=== PATIENT | female | born 1995 | race Caucasian/White ===

== ENCOUNTER 2018-08-08 13:28 | Emergency (ER) | payer OTHER ==
[2018-08-08 13:33] VITALS: BP 95/68; PULSE 78; TEMP 98.4; BMI 19.6
--- NOTE | 2018-08-08 14:44 | PDOC ---
History of Present Illness - General Chief Complaint: Injury Stated Complaint: LEFT FOOT/5TH TOE INJURY Time Seen by Provider: 08/08/18 14:09 History Source: Patient Exam Limitations: No Limitations - History of Present Illness Initial Comments: 08/08/18 14:42 23y F no pmhx presents with complaint of L 5th toe pain after dropping a block of wood on it pt notse mild pain ther, deneis any numbness/tingling;weankess. Musculskelatal - +5th toe pain no reported back pain, joint swelling skin - no reported bruising, erythema, rash neurological: no reported headache, numbness, focal weakness, tingling, ataxia, hematologic: no reported easy bruising, easy bleeding EXTREMITIES: mild ttp to 5th distal/proximal phalnx NEUROLOGICAL: sensation intact SKIN: Warm, Dry, normal turgor, somee cchymosis on 5th pinky toe xray to ro fx tylenol for pain 08/08/18 16:22 xray suggestif of fx on the distal phalanges lilia taped recommended pt not to play baskeball untli she follows up with her doctor and ortho reutn precautiosn were discussed I discussed the physical exam findings, ancillary test results and final diagnoses with the patient. I answered all of the patient's questions. The patient was satisfied with the care received and felt comfortable with the discharge plan and treatment plan. The patient will call their primary care physician within 24 hours to arrange follow-up and will return to the Emergency Department with any new, persistent or worsening symptoms. Past History - Past Medical History Allergies/Adverse Reactions: Allergies Allergy/AdvReac Type Severity Reaction Status Date / Time No Known Allergies Allergy Verified 08/08/18 13:29 Home Medications: Ambulatory Orders NK [No Known Home Medication] 08/08/18 Anemia: Yes Asthma: Yes COPD: No - Suicide/Smoking/Psychosocial Hx Smoking History: Never smoked Have you smoked in the past 12 months: No Information on smoking cessation initiated: No Hx Alcohol Use: No *Physical Exam - Vital Signs Last Vital Signs Temp Pulse Resp BP Pulse Ox 98.4 F 78 18 95/68 99 08/08/18 13:28 08/08/18 13:28 08/08/18 13:28 08/08/18 13:28 08/08/18 13:28 ED Treatment Course - RADIOLOGY Radiology Studies Ordered: Category Date Time Status FOOT-LEFT [RAD] Stat Radiology 08/08/18 14:14 Ordered *DC/Admit/Observation/Transfer Diagnosis at time of Disposition: Fracture of fifth toe, left, closed Qualifiers: Encounter type: initial encounter Qualified Code(s): S92.502A - Displaced unspecified fracture of left lesser toe(s), initial encounter for closed fracture - Discharge Dispostion Disposition: HOME Condition at time of disposition: Stable Decision to Admit order: No - Referrals Referrals: Timbo Loving MD [Staff Physician] - - Patient Instructions Printed Discharge Instructions: DI for Toe Fracture Additional Instructions: Return to the emergency department immediately with ANY new, persistent or worsening symptoms. Please see your primary care doctor or orthopedics for further evaluation of your symptoms. No basketball or sports until you have been evaluated. Results were discussed with you. Please make sure your doctor reviews the results of your emergency evaluation. Print Language: PAKISTANI - Post Discharge Activity Forms/Work/School Notes: Back to School
== END 2018-08-08 16:40 | disposition home or self-care (01) ==
LOC: FER 13:28
DX: S92.502A Displaced unspecified fracture of left lesser toe(s), initial encounter for closed fracture (principal); W22.8XXA Striking against or struck by other objects, initial encounter; Y93.89 Activity, other specified; Y92.9 Unspecified place or not applicable; J45.909 Unspecified asthma, uncomplicated
CPT/HCPCS: 73630-TC-LT; 99282-25